=== PATIENT | male | born 1990 | race Caucasian/White ===

== ENCOUNTER → 2023-04-25 | Outpatient (CLI) | payer OTHER | LOC: M RAD 09:12 | PROVIDERS: ATTEND Physician Assistant Medical | DX: R10.9 Unspecified abdominal pain (principal); R16.1 Splenomegaly, not elsewhere classified ==

== ENCOUNTER 2023-06-27 07:47 | Day surgery (SDC) | payer OTHER ==
[~2023-06-27] VITALS: Ht 182.9 cm; Wt 84.7 kg
[~2023-06-27 07:47] MED LIST: ESOM20CA25 PO; LISI5TAB11 PO; THERTAB52 PO
[2023-06-27] MEDS: NS 1,000 ML IV ONE (08:05)
[2023-06-27] MEDS ORDERED: propofoL 200 MG/20 ML VIAL As Ordered ONE (08:13)
[2023-06-27] MEDS ORDERED: LIDOCAINE 1% MDV 20ML VIAL As Ordered ONE (08:13)
[2023-06-27 09:33] VITALS: BP 100/57; TEMP 96.3; O2SAT 99
== END 2023-06-27 09:37 | disposition home or self-care (01) ==
LOC: M OPP 07:47
PROVIDERS: ATTEND Surgery
DX: K63.5 Polyp of colon (principal); K58.0 Irritable bowel syndrome with diarrhea; K21.00 Gastro-esophageal reflux disease with esophagitis, without bleeding; Z79.1 Long term (current) use of non-steroidal anti-inflammatories (NSAID); Z79.899 Other long term (current) drug therapy